=== PATIENT | female | born 1940 | race Caucasian/White ===

== ENCOUNTER 2025-07-19 10:56 | Outpatient (CLI) | payer MEDICARE ==
[~2025-07-19 10:56] MED LIST: ASPI81TA52 PO; Atorvastatin Calcium PO; TICA90TA PO
--- NOTE | 2025-07-19 14:22 | VASCULAR REPORT ---
EXAM: VASC VL BRY ANKLE/BRACHIAL INDEX CLINICAL HISTORY: Peripheral vascular disease Peripheral vascular disease COMPARISON: None TECHNIQUE: Bilateral systolic ankle and brachial pressures are obtained, with ankle pulse volume waveforms and indices. FINDINGS: Pressures: Right Left Brachial not taken 138 mmHg PT 152 mmHg 154 mmHg DP - mmHg - mmHg BRY: Right Left 1.1 1.12 Pulse volume waveforms: There are biphasic and monophasic waveforms bilaterally IMPRESSION: 1. Normal ankle brachial indices bilaterally. These may be artificially elevated due to calcified vessels. There are monophasic waveforms in the tibial outflow vessels and there may be underlying peripheral vascular disease. If there is high clinical concern, angiogram may be helpful for further evaluation 1.0-1.4: normal 0.91-0.99 borderline 0.9: abnormal (i.e. PAD) 0.4-0.9: [id number] PAD <0.4: suggestive of severe PAD
== END 2025-07-19 23:59 | disposition home or self-care (01) ==
LOC: VAS 10:56
PROVIDERS: ATTEND Nurse Practitioner Family
DX: I73.9 Peripheral vascular disease, unspecified (principal)
CPT/HCPCS: 93922